=== PATIENT | male | born 1930 | race Caucasian/White ===

== ENCOUNTER 2016-11-26 21:21 | Emergency (ER) | payer MEDICARE ==
[2016-11-26] MEDS ORDERED: Fentanyl 100 MCG/2 ML VIAL ONE ×2 (21:38→23:23)
[2016-11-26] MEDS ORDERED: Ondansetron HCl/PF 4 MG/2 ML Vial ONE (21:40)
[2016-11-26 21:50] LABS: #Basophils 0.2 thou/uL (0.0-0.2); #Lymphocytes 1.6 thou/uL (1.20-3.40); #Monocytes 0.9 thou/uL (0.11-0.59); #Neutrophils 10.6 thou/uL (1.40-6.50); %Basophils 1.5 % (0.0-1.0); %Monocytes 6.4 % (0.0-10.0); Hemoglobin 14.3 g/dL (14.0-18.0); Mean Corpuscular Hemoglobin 32.7 pg (27.0-31.0); Mean Corpuscular Volume 96.2 fl (80.0-94.0); Mean Platelet Volume 5.6 fL (7.4-10.4); Platelet Count 267 thou/uL (130-400); RBC Distribution Width 13.6 % (11.5-14.5); Red Blood Cell (RBC) Count 4.37 mill/uL (4.70-6.10); White Blood Cell (WBC) Count 13.2 thou/uL (4.8-10.8)
[2016-11-26 21:54] LABS: INR-International Normal Ratio 1.1; Prothrombin Time 14.4 SEC (12.0-14.7)
[2016-11-26 21:55] LABS: D-Dimer Test 3.28 *mcg/mL (0.27-0.43)
[2016-11-26 22:03] LABS: ALT (SGPT) 30 U/L (8-55); AST (SGOT) 32 U/L (5-34); Albumin 4.4 g/dL (3.4-4.8); Alkaline Phosphatase 90 U/L (40-150); Anion Gap 18 mmol/L (10-20); BUN (Urea Nitrogen) 34 mg/dL (8.4-25.7); Bilirubin, Total 0.7 mg/dL (0.2-1.2); Calc. Creatinine Clearance 0 mL/min (70-130); Calcium 9.6 mg/dL (7.8-10.44); Carbon Dioxide 21 mmol/L (23-31); Chloride 106 mmol/L (98-107); Estimated GFR-MDRD 27; Globulin 2.8 g/dL (2.4-3.5); Glucose 134 mg/dL (83-110); Lipase 40 U/L (8-78); Potassium 4.3 mmol/L (3.5-5.1); Protein, Total 7.2 g/dL (5.8-8.1); Sodium 141 mmol/L (136-145)
[2016-11-26 22:04] LABS: CKMB 3.9 ng/mL (0-6.6); Troponin I 0.019 ng/mL (< 0.028)
[2016-11-26 22:07] LABS: Bilirubin Negative (Negative); Blood, Urine Negative (Negative); Clarity Clear (Clear); Glucose, Urine (Dipstick) Negative (Negative); Leukocyte Negative (Negative); Nitrite Negative (Negative); Protein, Urine (Dipstick) 30 mg/dL (Neg-Trace); Urobilinogen 0.2 mg/dL (0.2-1.0); pH, Urine 5.5 (5.0-9.0)
[2016-11-26 22:08] LABS: Specific Gravity, Urine 1.021 (1.002-1.036)
[2016-11-26 22:14] LABS: Bacteria/HPF Rare-Few HPF (None Seen); RBC/HPF 0-3 HPF (0-3); Squamous Epithelial 0-3 HPF (0-3); WBC/HPF 0-3 HPF (0-3)
[2016-11-26 22:15] LABS: Hyaline Casts/LPF 0-3 HYALINE CAST LPF (0-3 Hyaline)
[2016-11-26] MEDS ORDERED: Pantoprazole 40 MG VIAL ONE (22:43)
[2016-11-26] MEDS ORDERED: Lidocaine Viscous Sol 2% 15 ml UD Cup ONE (23:35)
--- NOTE | 2016-11-27 10:43 | RAD ---
PORTABLE CHEST: DATE: 11/26/16. FINDINGS: An AP portable film at 225 is compared with a 02/09/15 study. The heart size is unchanged being appropriate for age and projection. There are no congestive sidhu es or pleural effusions. There is some linear streaking in the right lung base which was not presen t before. This could be atelectasis, intervening scarring, or less likely acute infiltrate. The tr achea is midline. IMPRESSION: Minor right basilar streaking. POS: HOME
--- NOTE | 2016-11-27 10:49 | RAD ---
PORTABLE CHEST: DATE: 11/26/16. FINDINGS: Comparison is made with the film done earlier. This film was apparently taken after an attempt at p lacing a nasogastric tube. I do not see any such tube on this film. I can only assume either the a ttempt was aborted or the tube is coiled in the patient's throat. The right basilar streaking descr ibed earlier is the same. Both lungs are fully inflated. There are no effusions. Cardiac size is the same. IMPRESSION: No nasogastric tube was clearly displayed on this study. CODE T POS: HOME
--- NOTE | 2016-11-27 20:35 | CT ---
PRELIMINARY REPORT/[facility]/EMERGENCY AFTER HOURS PROCEDURE: EXAM: CT Abdomen and Pelvis Without Intravenous Contrast CLINICAL HISTORY: 86 years old, male; Pain; Abdominal pain; Generalized; Prior surgery; Surgery date: 6+ months; Surge ry type: Aaa repair surgery. Nephrectomy. ; Patient HX: Pt having severe abdominal pain. History of aortic aneurism. Gfr 27 so no contrast was administered. TECHNIQUE: Axial computed tomography images of the abdomen and pelvis without intravenous contrast. This CT exa m was performed using one or more of the following dose reduction techniques: automated exposure con trol, adjustment of the mA and/or kV according to patient size, and/or use of iterative reconstruction technique. Coronal and sagittal reformatted images were created and reviewed. EXAM DATE/TIME: 11/26/2016 10:20 PM COMPARISON: No relevant prior studies available. FINDINGS: Limitations: Masses and lesions in the solid organs including traumatic injury and vascular and infe ctious pathology can be missed without intravenous contrast. Lower thorax: Right lung basilar scarring ABDOMEN: Liver: unremarkable for age Gallbladder and bile ducts: No gallbladder distention. No CBD dilation. Pancreas: unremarkable Spleen: unremarkable Adrenals: unremarkable Kidneys and ureters: Right nephrectomy. Left renal hypodense and hyperdense cysts. No left hydronephrosis. Stomach and bowel: Fluid distended stomach and prominent loops of fluid-filled small bowel demonstra ting air-fluid levels. Distal small bowel not dilated. Luminal collapse and absence of oral contrast in bowel exaggerates submucosal and/or mural thickening. distal colonic diverticulosis Appendix: Appendix normal PELVIS: Bladder: urinary bladder empty. Reproductive: Radical prostatectomy ABDOMEN and PELVIS: Intraperitoneal space: No ascites. No pneumoperitoneum. 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 Vasculature: No abdominal aortic aneurysm. Tortuous abdominal aorta with fusiform ectasia. 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 Lymph nodes: No bulky adenopathy. IMPRESSION: - Small bowel obstruction or ileus. - See comments above regarding additional chronic findings. Thank you for allowing us to participate in the care of your patient. Dictated and Authenticated by: Giles Diamond MD 11/26/2016 11:15 PM Central Time ([place] \T\ [place]) FINAL REPORT CT ABDOMEN AND PELVIS WITHOUT CONTRAST: Date: 11-26-16 Comparison: CT dated 02-09-15 FINDINGS: While IV contrast would have been desirable, the patient's GFR was 27, and as he only has one kidney , it was felt that a noncontrast study could suffice in determining if there had been any change of the aorta or other causes for pain in the abdomen. Axial slices were acquired from the lung bases th rough the pelvis. Coronal and sagittal reconstructions were done. The major finding on this study is a markedly distended stomach with much fluid in it, as well as mu ltiple distended loops of air fluid filled small bowel. Small bowel remains dilated, some loops as w albert as 3.7 cm, until one gets to distal small bowel where it and the colon assumes a more normal siz e. The findings raise the question of a distal small bowel obstruction. An ileus is in the different ial but seems a bit less likely given the transition of dilated small bowel to normal small bowel di stally. There is no free air or free fluid present. These are all new findings since the 2015 scan. There is some streaking in the right lung base that was not present in 2015. It is somewhat linear s o it is likely to represent atelectasis or scarring. The liver, spleen and pancreas showed no acute findings within the limitations of a noncontrast study. No adrenal nodules were seen. A few tiny gal lstones were apparent. The right kidney is not present. The remaining left kidney has peripheral cys ts which are both hypo and hyper dense. There is no sign of renal obstruction. Regarding the aorta, the appearance does not appear substantially different than 2015. There is a di lated area of the aorta in the infrarenal region that measures about 3.7 to 4.0 cm in diameter. Its size and appearance has not changed over time. Extensive arterial sclerosis is present throughout th e vascular system. CT of the pelvis shows no pelvic masses, fluid collections, or acute findings. Surgical clips are se en at the site of prior prostate surgery. Severe degenerative changes are present in the patient's l umbar spine. IMPRESSION: 1. Interval distention of the stomach and much of the small bowel with retained fluid within the lum en. The possibility of a distal small bowel obstruction is raised. 2. Right basilar streaking, a new finding. Probably atelectasis or scarring, or both. 3. Tiny gallstones without significant distention or thickening of the gallbladder. 4. 4 cm dilated area of the lower abdominal aorta below the level of the renal vessels measuring up to 4 cm in diameter. The size and appearance has not changed since the prior scan. Report in basic agreement with preliminary reading by GEOVANNI. POS: HOME
== END 2016-11-27 00:47 | disposition short-term general hospital (02) ==
LOC: BURERS 21:21
DX: K56.60 Unspecified intestinal obstruction (principal); I44.7 Left bundle-branch block, unspecified; J44.9 Chronic obstructive pulmonary disease, unspecified; I10 Essential (primary) hypertension; E03.9 Hypothyroidism, unspecified; E78.00 Pure hypercholesterolemia, unspecified; Z79.82 Long term (current) use of aspirin; Z79.899 Other long term (current) drug therapy
CPT/HCPCS: 71010; 74176; 80053; 81003; 81015; 82553; 83605; 83690; 84484; 85025; 85379; 85610; 85730; 93005; 94760; 96374; 96375; C9113; J2405; J3010